=== PATIENT | male | born 1980 | race Caucasian/White ===

== ENCOUNTER → 2019-09-14 | Outpatient (CLI) | payer BC ==
[2019-09-14 09:27] LABS: Basophils # (auto) 0.1 uL; Eosinophils # (auto) 0.2 uL; Eosinophils % (auto) 2.7 % (0.0-7.0); Hematocrit 47.7 % (41.0-53.0); Hemoglobin 15.8 g/dL (13.5-17.5); Mean Corpuscular Hemoglobin 29.9 pg (28.0-32.0); Mean Corpuscular Hgb Conc. 33.2 g/dL (32.0-36.0); Mean Corpuscular Volume 90.1 fL (80.0-100.0); Monocytes # (auto) 0.4 uL; Monocytes % (auto) 7.2 % (0.0-12.0); Neutrophils # (auto) 2.9 uL; Neutrophils % (auto) 52.1 % (37.0-80.0); Nucleated Red Blood Cells % 0.1 %; Platelet Count (auto) 142 10^3/uL (140-450); Red Cell Distribution Width 13.1 % (11.8-14.3); White Blood Cell 5.5 10^3/uL (4.4-10.8)
[2019-09-14 09:44] LABS: Urine Bacteria NONE SEEN /hpf (None Seen); Urine Blood Negative /uL (Negative); Urine Specific Gravity 1.021 (1.001-1.035); Urine WBC <1 /hpf (0 - 3)
[2019-09-14 09:51] LABS: Albumin 4.4 g/dL (3.4-5.0); Calcium 9.7 mg/dL (8.5-10.1); Potassium 4.5 mmol/L (3.5-5.1)
[2019-09-14 09:57] LABS: BUN/Creatinine Ratio 17.7; Bilirubin, Total 0.5 mg/dL (0.2-1.0)
== END | disposition home or self-care (01) ==
LOC: LAB 08:28
PROVIDERS: ATTEND Internal Medicine
DX: B36.0 Pityriasis versicolor (principal); R53.83 Other fatigue
CPT/HCPCS: 36415; 80053; 80061; 81001; 84439; 84443; 85025; 85652

== ENCOUNTER → 2020-06-28 | Outpatient (CLI) | payer BC ==
[2020-06-28 08:48] LABS: Basophils # (auto) 0 10 ^3/uL (0-0.2); Basophils % (auto) 0.4 % (0.0-2.0); Eosinophils # (auto) 0.1 10 ^3/uL (0-0.8); Eosinophils % (auto) 2.5 % (0.0-7.0); Hematocrit 46.4 % (41.0-53.0); Hemoglobin 16.1 g/dL (13.5-17.5); Lymphocytes # (auto) 2.5 10 ^3/uL (0.4-5.4); Mean Corpuscular Hemoglobin 30.7 pg (28.0-32.0); Mean Corpuscular Hgb Conc. 34.6 g/dL (32.0-36.0); Mean Corpuscular Volume 88.5 fL (80.0-100.0); Monocytes # (auto) 0.4 10 ^3/uL (0-1.3); Monocytes % (auto) 7.1 % (0.0-12.0); Neutrophils # (auto) 2.8 10 ^3/uL (1.6-8.6); Platelet Count (auto) 133 10^3/uL (140-450); Red Blood Cells 5.24 10^6/uL (4.5-5.90); Red Cell Distribution Width 13.6 % (11.8-14.3); White Blood Cell 5.9 10^3/uL (4.4-10.8)
[2020-06-28 09:06] LABS: INR 0.99 (0.9-1.15)
[2020-06-28 09:09] LABS: Albumin 4.3 g/dL (3.4-5.0); Calcium 9.6 mg/dL (8.5-10.1)
[2020-06-28 09:12] LABS: BUN/Creatinine Ratio 22.5; Bilirubin, Total 0.8 mg/dL (0.2-1.0); Total Protein 8.2 g/dL (6.4-8.2)
[2020-06-28 09:26] LABS: Free T4 (Free Thyroxine) 1.12 ng/dL (0.89-1.76); Prostate Specific Antigen 0.74 ng/mL (0.0-4.0)
[2020-06-28 10:05] LABS: Urine Bacteria NONE SEEN /hpf (None Seen); Urine Blood Negative /uL (Negative); Urine Mucus FEW (None Seen); Urine Specific Gravity 1.031 (1.001-1.035); Urine WBC <1 /hpf (0 - 3)
[2020-06-29 10:06] LABS: Hepatitis B Surface Antibody Negative
[2020-06-29 10:41] LABS: Hepatitis A Total Antibody Negative
[2020-06-29 11:14] LABS: Hepatitis B Core IgM Negative; Hepatitis B Core Total AB Negative; Hepatitis B Surface Antigen Negative (Negative)
== END | disposition home or self-care (01) ==
LOC: LAB 08:13
PROVIDERS: ATTEND Internal Medicine
DX: Z01.812 Encounter for preprocedural laboratory examination (principal); Z12.5 Encounter for screening for malignant neoplasm of prostate; K76.0 Fatty (change of) liver, not elsewhere classified; R79.89 Other specified abnormal findings of blood chemistry
CPT/HCPCS: 36415; 80053; 80061; 81001; 82390; 83540; 84153; 84439; 84443; 85025; 85610; 85652; 86038; 86704; 86705; 86706; 86708; 86803; 87340

== ENCOUNTER 2021-06-01 08:32 | Emergency (ER) | payer BC ==
[~2021-06-01] VITALS: Ht 172.7 cm; Wt 93.0 kg
[2021-06-01] MEDS ORDERED: DexAMETHasone SOD PHOS 10MG/1ML VIAL INJ IM ONE (10:15)
[2021-06-01] MEDS ORDERED: cefTRIAXone SOD 1,000 MG VL IM ONE (10:15)
[2021-06-01 10:33] VITALS: BP 133/90
== END 2021-06-01 10:51 | disposition home or self-care (01) ==
LOC: ER 08:34
DX: U07.1 COVID-19 (principal); J12.82 Pneumonia due to coronavirus disease 2019
CPT/HCPCS: 71045; 96372; 99284; J0696; J1100

== ENCOUNTER 2025-08-21 10:40 | Emergency (ER) | payer BC ==
[~2025-08-21] VITALS: Ht 170.2 cm; Wt 96.4 kg
--- NOTE | 2025-08-21 11:25 | ED.PDOC ---
HPI Comments 45 y/o M, presents to the ED for CC of s/p dog bite. Patient states, he was bitten by a dog on his left posterior leg; bleeding is controlled at this time. Patient denies discharge to site, fever, chills, numbness, or tingling. No other symptoms or modifying factors are present at this time. Chief Complaint: Puncture Wound Time Seen by MD: 11:15 Primary Care Provider: NICOLE Avalos Notes: Nurses Notes, Medications, Allergies Allergies: Coded Allergies: NO KNOWN ALLERGIES (Unverified , 06/01/21) Home Meds Active Scripts Bacitracin-Polymyxin B (Neosporin [id number] Unit/gm) 1 Oin Oin, 1 OIN EX BID for 5 Days, #30 OIN Prov:SHARYN BARNETT MD 08/21/25 Amoxicillin & Pot Clavulanate (Augmentin) 500 Mg Tab, 500 MG PO TID for 5 Days, #15 TAB Prov:SHARYN BARNETT MD 08/21/25 Information Source: Patient Mode of Arrival: Ambulatory Severity: Moderate Severity of Laceration: Controlled Bleeding Complexity: Simple Timing: Days Prehospital treatment: None Laceration Location: Leg (left) Mechanism: Dog Last Tetanus: Unknown Laceration Length (cm): 1 Skin Type: Irregular Depth of Injury: Skin Tender: Mild Discharge: Bloody Erythema: Localized to Wound Edges Associated Signs and Symptoms: None Past Medical History PAST MEDICAL HISTORY: Anxiety Surgical History: Denies all surgeries Family History Family History: Reviewed,noncontributory to illness Social History Smoker: Non-Smoker Lives In: Home Constitutional: denies: chills, diaphoresis, fatigue, fever, malaise, sweats, weakness, others EENTM: denies: blurred vision, double vision, ear bleeding, ear discharge, ear drainage, ear pain, ear ringing, eye pain, eye redness, hearing loss, mouth pain, mouth swelling, nasal discharge, nose bleeding, nose congestion, nose pain, photophobia, tearing, throat pain, throat swelling, voice changes, others Respiratory: denies: cough, hemoptysis, orthopnea, SOB at rest, shortness of breath, SOB with excertion, stridor, wheezing, others Cardiovascular: denies: chest pain, dizzy spells, diaphoresis, Dyspnea on exertion, edema, irregular heart beat, left arm pain, lightheadedness, palpitations, PND, syncope, others Gastrointestinal: denies: abdomen distended, abdominal pain, blood streaked bowels, constipated, diarrhea, dysphagia, difficulty swallowing, hematemesis, melena, nausea, poor appetite, poor fluid intake, rectal bleeding, rectal pain, vomiting, others Genitourinary: denies: burning, dysuria, flank pain, frequency, hematuria, incontinence, penile discharge, penile sore, pain, testicle pain, testicle swelling, urgency, others Neurological: denies: dizziness, fainting, headache, left sided numbness, left sided weakness, numbness, paresthesia, pre-existing deficit, right sided numbness, right sided weakness, seizure, speech problems, tingling, tremors, weakness, others Musculoskeletal: denies: back pain, gout, joint pain, joint swelling, muscle pain, muscle stiffness, neck pain, others Integumetry: reports: laceration (puncture wound); denies: bruises, change in color, change in hair/nails, dryness, lesions, lumps, rash, wounds, others Allergic/Immunocompromised: denies: Difficulty Healing, Frequent Infections, Hives, Itching, others Hematologic/Lymphatic: denies: anemia, blood clots, easy bleeding, easy br uising, swollen glands, others Endocrine: denies: excessive hunger, excessive sweating, excessive thirst, excessive urination, flushing, intolerance to cold, intolerance to heat, unexplained weight gain, unexplained weight loss, others Psychiatric: denies: anxiety, bipolar disorder, depression, hopeless, panic disorder, schizophrenia, sleepless, suicidal, others All Other Systems: Reviewed and Negative Physical Exam General Appearance: No Apparent Distress HEENT: Normal ENT Inspection, Pharynx Normal, TMs Normal Neck: Full Range of Motion, Non-Tender, Normal, Normal Inspection Respiratory: Chest Non-Tender, Lungs Clear, No Accessory Muscle Use, No Respiratory Distress, Normal Breath Sounds Cardiovascular: No Edema, No JVD, No Murmur, No Gallop, Normal Peripheral Pulses, Regular Rate/Rhythm Breast Exam: Deferred Gastrointestinal: No Organomegaly, Non Tender, No Pulsatile Mass, Normal Bowel Sounds, Soft Genitalia: Deferred Pelvic: Deferred Rectal: Deferred Extremities: No calf tenderness, Normal capillary refill, Normal inspection, Normal range of motion, Non-tender, No pedal edema, Other (Puncture wound left cough from dog bite) Neurologic: Alert, 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 Was a procedure done?: No Differential diagnosis Generic Laceration: Abrasion/Contusion, Other (puncture wound) Differential Diagnosis: N/A X-Ray, Labs, Meds, VS Vital Signs Date Time Temp Pulse Resp B/P (MAP) Pulse Ox O2 Delivery O2 Flow Rate FiO2 08/21/25 14:09 97.6 72 18 132/88 (103) 98 97.6 08/21/25 14:09 72 18 98 Room Air 08/21/25 10:42 97.0 77 15 141/105 99 97.0 Current Medications Medications (Trade) Dose Ordered Sig/Fernanda Route Start Time Stop Time Status Last Admin Diphtheria/ Tetanus/Acell Pertussis (Boostrix T-Dap) 0.5 ml ONCE ONCE IM 08/21/25 11:30 08/21/25 11:31 DC 08/21/25 12:01 X-Ray, Labs, Meds, VS Comment In the [employer] uneventful patient came in because of the puncture wound to his left leg Patient will receive a Tdap cleaned the wound with peroxide and apply Band-Aid Time of 1ST Reevaluation: 11:45 Reevaluation 1ST: Unchanged Time of 2ND Reevaluation: 11:28 Reevaluation 2ND: Improved Consultation: PCP Patient Education/Counseling: Diagnosis, Treatment, Prognosis, Need For Follow Up Family Education/Counseling: Diagnosis, Treatment, Prognosis, Need For Follow Up, No Family Present Departure 1 Departure Time of Disposition: 11:28 Impression: Primary Impression: Dog bite of calf Disposition: 01 HOME / SELF CARE / HOMELESS Condition: Fair Additional Instructions: Clean and dry with peroxide apply Neosporin ointment and dressing e-Prescriptions Bacitracin-Polymyxin B (Neosporin 500-98406 Unit/gm) 1 Oin Oin 1 OIN EX BID for 5 Days, #30 OIN Prov: SHARYN BARNETT MD 08/21/25 Amoxicillin & Pot Clavulanate (Augmentin) 500 Mg Tab 500 MG PO TID for 5 Days, #15 TAB Prov: SHARYN BARNETT MD 08/21/25 Discharged With: Self Critical Care Note Critical Care Time?: No Stability Stability form required: No Heart Score Heart Score: Heart Score Response (Comments) Value History N/A 0 EKG N/A 0 Age <45 0 Risk Factors No known risk factors 0 Troponin N/A 0 Total 0 I personally scribed for SHARYN BARNETT MD ([email or web address]) on 08/21/25 at 11:25. Electronically submitted by Rae Bird ([email or web address]). SHARYN BARNETT MD Aug 21, 2025 11:25
[2025-08-21] MEDS ORDERED: AMOX500T86 PO (11:32)
[2025-08-21] MEDS ORDERED: BACI1OIN45 EX (11:32)
[2025-08-21] MEDS: TETANUS-DIPTH-ACEL PERTUSSIS 0.5ML SYR Tdap IM ONE (12:01)
[2025-08-21 14:09] VITALS: BP 132/88; PULSE 72; RESP 18; TEMP 97.6; O2SAT 98
== END 2025-08-21 14:11 | disposition home or self-care (01) ==
LOC: ER 10:40
DX: S81.859A Open bite, unspecified lower leg, initial encounter (principal); F41.9 Anxiety disorder, unspecified; W54.0XXA Bitten by dog, initial encounter; Y93.89 Activity, other specified; Y92.89 Other specified places as the place of occurrence of the external cause; Y99.8 Other external cause status
CPT/HCPCS: 90471; 90715